=== PATIENT | male | born 1990 | race African-American/Black ===

== ENCOUNTER → 2021-02-17 | Emergency (ER) | payer OTHER ==
[~2021-02-17] VITALS: Ht 182.9 cm; Wt 90.3 kg
--- NOTE | 2021-02-17 00:40 | NUR ---
Patient does not wish to proceed with medical care recommended by Dr. zimmerman. Patient given information related to possible complications, up to and including , which could occur as a result of leaving the hospital at this time. Patient verbalizes understanding of risks involved due to leaving against medical advice. Patient has signed AMA form.
[2021-02-17 00:52] VITALS: BP 120/68
== END | disposition home or self-care (01) ==
LOC: ER 00:24
DX: R06.02 Shortness of breath (principal)